=== PATIENT | female | born 1950 | race Caucasian/White ===

== ENCOUNTER 2018-08-03 07:13 | Day surgery (SDC) | payer OTHER ==
[~2018-08-03] VITALS: Ht 157.5 cm; Wt 62.5 kg
[2018-08-03] MEDS ORDERED: DIABETES MEDICATION (08:23)
[2018-08-03] MEDS ORDERED: HYPERTENSION MED (08:23)
[2018-08-03 08:28] VITALS: Ht 157.5 cm; Wt 62.5 kg
[2018-08-03 09:21] VITALS: BP 186/87; PULSE 72; RESP 14
[2018-08-03] MEDS ORDERED: FENTAnyl 50 MCG/ML VIAL ONE (09:58)
[2018-08-03] MEDS ORDERED: MIDAZOLAM 1 MG/ML 2 ML INJ ONE ×2 (09:58)
[2018-08-03 10:15] VITALS: BP 119/71; PULSE 56; RESP 18
== END 2018-08-03 12:24 | disposition home or self-care (01) ==
LOC: GIL 07:13
PROVIDERS: ATTEND Internal Medicine Gastroenterology
DX: K29.50 Unspecified chronic gastritis without bleeding (principal); B96.81 Helicobacter pylori [H. pylori] as the cause of diseases classified elsewhere; K64.8 Other hemorrhoids; K21.9 Gastro-esophageal reflux disease without esophagitis; I10 Essential (primary) hypertension; E11.9 Type 2 diabetes mellitus without complications
CPT/HCPCS: 82962; 88305; 88312; J2250; J3010